=== PATIENT | female | born 1930 | race Caucasian/White ===

== ENCOUNTER 2017-07-25 09:49 | Outpatient (CLI) | payer OTHER ==
[2014-03-02 08:04] VITALS: O2SAT 94
== END 2017-07-25 09:50 | disposition home or self-care (01) | DRG 556 ==
LOC: CONVCARE 09:49
PROVIDERS: ATTEND Orthopaedic Surgery
DX: M25.551 Pain in right hip (principal); M17.12 Unilateral primary osteoarthritis, left knee; M25.561 Pain in right knee; M48.06 Spinal stenosis, lumbar region
CPT/HCPCS: 72120; 72148; 73502; 73564

== ENCOUNTER 2017-08-13 10:25 | Day surgery (SDC) | payer OTHER ==
[2017-08-13 11:00] VITALS: O2SAT 96
[2017-08-13] MEDS ORDERED: LIDOCAINE HCL 1% MPF SOL ONE (12:04)
[2017-08-13] MEDS: DEXAMETHASONE SOD PHOS PF 10 MG/ML SOL IJ ONE ×2 (12:12→12:22)
[2017-08-13 12:43] VITALS: RESP 20; TEMP 97.3
[2017-08-13 12:48] VITALS: BP 166/49; PULSE 50
== END 2017-08-13 12:50 | disposition home or self-care (01) | DRG 552 ==
LOC: SURG 10:25
PROVIDERS: ATTEND Nurse Anesthetist, Certified Registered
DX: M54.16 Radiculopathy, lumbar region (principal)
CPT/HCPCS: J1100; J2001

== ENCOUNTER 2017-09-10 13:48 | Day surgery (SDC) | payer OTHER ==
[2017-09-10 14:39] VITALS: BP 155/85; PULSE 58; RESP 18; TEMP 98.6; O2SAT 97
[2017-09-10] MEDS ORDERED: TRIAMCINOLONE ACETONIDE 40 MG/ML SUS ONE (15:08)
[2017-09-10] MEDS ORDERED: BUPIVACAINE HCL 0.25% MPF 10 ML SOL INFIL ONE (15:09)
== END 2017-09-10 15:35 | disposition home or self-care (01) | DRG 556 ==
LOC: SURG 13:48
PROVIDERS: ATTEND Nurse Anesthetist, Certified Registered
DX: M25.551 Pain in right hip (principal); M16.11 Unilateral primary osteoarthritis, right hip
CPT/HCPCS: J3300

== ENCOUNTER 2017-11-15 17:39 | Inpatient (IN) | payer OTHER ==
[2017-11-15 18:38] LABS: BASOPHILS % (AUTO) 1 % (0-3); EOSINOPHILS % (AUTO) 1 % (0-9); HEMATOCRIT 33 % (35-47); MEAN CORPUSCULAR VOLUME 91 fL (81-99); MONOCYTES % (AUTO) 13.9 % (0-12); NEUTROPHILS % (AUTO) 73.2 % (37-80)
[2017-11-15 18:39] LABS: ALBUMIN 3.9 gm/dl (3.4-5.0); ALT 20 IU/L (14-63); CALCIUM 9.4 mg/dl (8.5-10.1); GLOM FILT RATE 56 mL/min (>60); POTASSIUM 3.8 mMol/L (3.5-5.1); SODIUM 135 mMol/L (136-145)
[2017-11-15] MEDS ORDERED: ACETAMINOPHEN 325 MG PO ONE (19:23)
[2017-11-15] MEDS ORDERED: ACETAMINOPHEN 325 MG ONE (19:25)
[2017-11-15 19:33] LABS: APPEARANCE,URINE Slightly Cloudy; BILIRUBIN,URINE NEGATIVE (NEGATIVE); COLOR,URINE Yellow; GLUCOSE, URINE (UA) NEGATIVE (NEGATIVE); KETONES,URINE NEGATIVE (NEGATIVE); LEUKOCYTE ESTERASE ,URINE NEGATIVE (NEGATIVE); NITRATE,URINE NEGATIVE (NEGATIVE); OCCULT BLOOD,URINE NEGATIVE (NEG-TRACE); PH,URINE 8.5
[2017-11-15 20:06] LABS: ABG PH 7.42 (7.35-7.45)
[2017-11-15 20:21] LABS: RBC,URINE NEG (0-3AV/HPF); WBC,URINE 0-2 (0-5AV/HPF)
[2017-11-15] MEDS ORDERED: SODIUM CHLORIDE 0.9% 1000ML 1,000 ML IV ONE (20:39)
[2017-11-15] MEDS ORDERED: OSELTAMIVIR PHOSPHATE 75 MG CAP PO ONE ×2 (20:59→21:07)
[2017-11-15] MEDS ORDERED: DOXYCYCLINE 100 MG PDS 100 MG in SODIUM CHLORIDE 0.9% 100 ML 100 ML IV ONE (21:17)
[2017-11-15] MEDS ORDERED: CEFTRIAXONE 1 GM (PREMIX) 1 GM/50 ML SOL IV ONE (21:19)
[2017-11-15] MEDS ORDERED: CEFTRIAXONE 1 GM PDS ONE (21:21)
[2017-11-15] MEDS ORDERED: DOXYCYCLINE 100 MG TAB PO ONE (21:22)
[2017-11-15] MEDS ORDERED: DOXYCYCLINE 100 MG TAB ONE (21:29)
[2017-11-15] MEDS ORDERED: SODIUM CHLORIDE 0.9% 50 ML 25 ML IV PRN (22:08)
[2017-11-15] MEDS: LISINOPRIL 20 MG TAB PO SCH (23:00)
[2017-11-15] MEDS: METOPROLOL SUCCINATE 50 MG ER TAB PO SCH (23:01)
[2017-11-16] MEDS ORDERED: SODIUM CHLORIDE 0.9% 1000ML 1,000 ML IV SCH (00:45)
[2017-11-16] MEDS: ACETAMINOPHEN 325 MG PO PRN ×4 (03:12→20:45)
[2017-11-16] MEDS ORDERED: Non-Formulary Medication MISC (Levothyroxine Sodium 112 Mcg 112 MCG) PO SCH (07:00)
[2017-11-16] MEDS: HUMALOG PEN 100 U/ML SC SCH ×4 (07:30→20:10)
[2017-11-16 07:44] LABS: BASOPHILS % (AUTO) 1 % (0-3); EOSINOPHILS % (AUTO) 1 % (0-9); HEMATOCRIT 29 % (35-47); MEAN CORPUSCULAR HGB CONC 34.3 gm/dl (32.0-36.0); MEAN CORPUSCULAR VOLUME 91 fL (81-99); MONOCYTES % (AUTO) 12.9 % (0-12); NEUTROPHILS % (AUTO) 77.1 % (37-80)
[2017-11-16 07:49] LABS: CALCIUM 8.5 mg/dl (8.5-10.1); POTASSIUM 3.5 mMol/L (3.5-5.1)
[2017-11-16] MEDS ORDERED: SODIUM CHLORIDE 0.9% 100 ML 100 ML IV ONE (08:46)
[2017-11-16] MEDS ORDERED: CEFTRIAXONE 1 GM PDS ONE (08:46)
[2017-11-16] MEDS: CEFTRIAXONE 1 GM PDS 1 GM in SODIUM CHLORIDE 0.9% 100 ML 100 ML IV SCH ×2 (08:54→20:28)
[2017-11-16] MEDS: ASPIRIN 325 MG TAB PO SCH (08:56)
[2017-11-16] MEDS: DOCUSATE SODIUM 100 MG SGL PO SCH ×2 (08:56→20:10)
[2017-11-16] MEDS: POTASSIUM CHLORIDE 10 MEQ TER PO SCH (08:57)
[2017-11-16] MEDS: ENOXAPARIN 40 MG SOL SC SCH (08:57)
[2017-11-16] MEDS: MULTIVITAMIN2 1 EA TAB PO SCH (08:58)
[2017-11-16] MEDS: CHOLECALCIFEROL 1,000 IU TAB PO SCH (08:58)
[2017-11-16] MEDS: ASCORBIC ACID 500 MG TAB PO SCH (08:58)
[2017-11-16] MEDS ORDERED: GABAPENTIN 300 MG CAP PO SCH (09:00)
[2017-11-16] MEDS ORDERED: DOXYCYCLINE 100 MG TAB PO SCH (09:00)
[2017-11-16] MEDS ORDERED: POLYETHYLENE GLYCOL 17 GM/1 TBS PDS PO SCH (09:00)
[2017-11-16] MEDS: LISINOPRIL 20 MG TAB PO SCH ×3 (10:09→20:11)
[2017-11-16] MEDS: FENOFIBRATE 200 MG PO SCH (11:22)
[2017-11-16] MEDS: LEVOTHYROXINE SODIUM 112 MCG TAB PO SCH (11:23)
[2017-11-16] MEDS: GABAPENTIN 300 MG CAP PO SCH ×2 (12:25→19:34)
[2017-11-16] MEDS: METOPROLOL SUCCINATE 50 MG ER TAB PO SCH ×2 (17:06→20:11)
[2017-11-16] MEDS ORDERED: HEPARIN SODIUM 5000 U/ML SOL IV ONE (17:27)
[2017-11-16] MEDS ORDERED: HEPARIN SODIUM 5000 U/ML 25,000 U in DEXTROSE 250 ML 250 ML IV PRN (17:27)
[2017-11-16] MEDS ORDERED: ALBUTEROL/IPRATROPIUM 1 VIAL SOL INH PRN (17:32)
[2017-11-16] MEDS ORDERED: HEPARIN SODIUM 5000 U/ML SOL ONE ×2 (17:51→17:52)
[2017-11-16] MEDS ORDERED: DEXTROSE 250 ML 250 ML IV ONE ×2 (17:52)
[2017-11-16 17:57] LABS: ABG PH 7.25 (7.35-7.45)
[2017-11-16 18:05] LABS: BASOPHILS % (AUTO) 1 % (0-3); EOSINOPHILS % (AUTO) 1 % (0-9); HEMATOCRIT 35 % (35-47); MEAN CORPUSCULAR HGB CONC 33.7 gm/dl (32.0-36.0); MEAN CORPUSCULAR VOLUME 92 fL (81-99); MONOCYTES % (AUTO) 8.8 % (0-12); NEUTROPHILS % (AUTO) 78.1 % (37-80)
[2017-11-16 18:23] LABS: CALCIUM 9.4 mg/dl (8.5-10.1); GLOM FILT RATE 61 mL/min (>60); SODIUM 138 mMol/L (136-145)
[2017-11-16] MEDS ORDERED: LORAZEPAM 2 MG/ML 10ML MDV 2 MG/ML VIAL IV PRN (18:32)
[2017-11-16] MEDS: SCOPOLAMINE 1.5MG PATCH TD SCH (18:55)
[2017-11-16] MEDS: PIPERACILLIN/TAZOBACT 3.375 GM 3 GM in SODIUM CHLORIDE 0.9% 100 ML 100 ML IV SCH (19:20)
[2017-11-16] MEDS: MORPHINE SULFATE 10 MG/ML SOL IV PRN (19:28)
[2017-11-16] MEDS ORDERED: PIPERACILLIN/TAZOBACT 3.375 GM PDS IV ONE (19:35)
[2017-11-16] MEDS ORDERED: LORAZEPAM 2 MG/ML SOL ONE (20:03)
[2017-11-16] MEDS: POLYETHYLENE GLYCOL 17 GM/1 TBS PDS PO SCH (20:10)
[2017-11-17] MEDS ORDERED: SODIUM CHLORIDE 0.9% 100 ML 100 ML IV ONE ×4 (00:25→19:38)
[2017-11-17] MEDS ORDERED: PIPERACILLIN/TAZOBACT 3.375 GM PDS IV ONE ×4 (00:25→19:38)
[2017-11-17] MEDS: PIPERACILLIN/TAZOBACT 3.375 GM 3 GM in SODIUM CHLORIDE 0.9% 100 ML 100 ML IV SCH ×3 (00:38→13:44)
[2017-11-17] MEDS: MORPHINE SULFATE 10 MG/ML SOL IV PRN ×2 (00:39→21:17)
[2017-11-17] MEDS: HUMALOG PEN 100 U/ML SC SCH ×4 (06:20→20:06)
[2017-11-17 07:17] LABS: HEMATOCRIT 31 % (35-47); MEAN CORPUSCULAR VOLUME 93 fL (81-99)
[2017-11-17 07:48] LABS: BASOPHILS % (MANUAL) 0 % (0-3); EOSINOPHILS % (MANUAL) 0 % (0-9); LYMPHOCYTES % (MANUAL) 5 % (10-50); NORMAL RBCS PRESENT
[2017-11-17] MEDS: FENOFIBRATE 200 MG PO SCH (09:06)
[2017-11-17] MEDS: DOCUSATE SODIUM 100 MG SGL PO SCH ×2 (09:06→20:06)
[2017-11-17] MEDS: ASPIRIN 325 MG TAB PO SCH (09:06)
[2017-11-17] MEDS: POTASSIUM CHLORIDE 10 MEQ TER PO SCH (09:06)
[2017-11-17] MEDS: MULTIVITAMIN2 1 EA TAB PO SCH (09:07)
[2017-11-17] MEDS: GABAPENTIN 300 MG CAP PO SCH ×3 (09:07→18:04)
[2017-11-17] MEDS: CHOLECALCIFEROL 1,000 IU TAB PO SCH (09:07)
[2017-11-17] MEDS: ASCORBIC ACID 500 MG TAB PO SCH (09:07)
[2017-11-17] MEDS: ENOXAPARIN 40 MG SOL SC SCH (09:16)
[2017-11-17] MEDS: LEVOTHYROXINE SODIUM 112 MCG TAB PO SCH (10:04)
[2017-11-17] MEDS ORDERED: ACETAMINOPHEN 650 MG SUP PR PRN (10:30)
[2017-11-17] MEDS: PIPERACILLIN/TAZOBACT 3.375 GM 3.375 GM in SODIUM CHLORIDE 0.9% 100 ML 100 ML IV SCH ×2 (13:28→19:54)
[2017-11-17] MEDS: SODIUM CHLORIDE 0.9% FLUSH 10 ML SOL IV SCH ×3 (14:10→22:25)
[2017-11-17] MEDS: ACETAMINOPHEN 325 MG PO PRN (16:54)
[2017-11-17] MEDS: METOPROLOL SUCCINATE 50 MG ER TAB PO SCH (20:07)
[2017-11-17] MEDS: POLYETHYLENE GLYCOL 17 GM/1 TBS PDS PO SCH (20:07)
[2017-11-18] MEDS ORDERED: PIPERACILLIN/TAZOBACT 3.375 GM PDS IV ONE ×4 (01:08→20:34)
[2017-11-18] MEDS ORDERED: SODIUM CHLORIDE 0.9% 100 ML 100 ML IV ONE ×4 (01:09→20:34)
[2017-11-18] MEDS: SODIUM CHLORIDE 0.9% FLUSH 10 ML SOL IV SCH ×5 (01:20→23:00)
[2017-11-18] MEDS: PIPERACILLIN/TAZOBACT 3.375 GM 3.375 GM in SODIUM CHLORIDE 0.9% 100 ML 100 ML IV SCH ×4 (01:21→20:58)
[2017-11-18] MEDS: ACETAMINOPHEN 325 MG PO PRN ×2 (01:32→21:05)
[2017-11-18] MEDS: MORPHINE SULFATE 10 MG/ML SOL IV PRN (01:57)
[2017-11-18] MEDS: LEVOTHYROXINE SODIUM 112 MCG TAB PO SCH (06:05)
[2017-11-18] MEDS: HUMALOG PEN 100 U/ML SC SCH (06:05)
[2017-11-18] MEDS: ENOXAPARIN 40 MG SOL SC SCH (11:00)
[2017-11-18] MEDS: POTASSIUM CHLORIDE 10 MEQ TER PO SCH (11:09)
[2017-11-18] MEDS: MULTIVITAMIN2 1 EA TAB PO SCH (11:09)
[2017-11-18] MEDS: METOPROLOL SUCCINATE 50 MG ER TAB PO SCH (21:02)
[2017-11-18] MEDS: MORPHINE SULFATE 10 MG/5 ML SOL PO PRN (21:02)
[2017-11-18] MEDS: LORAZEPAM 2 MG/ML SOL IV PRN (22:59)
[2017-11-18] MEDS: ASPIRIN 325 MG TAB PO SCH (23:52)
[2017-11-18] MEDS: GABAPENTIN 300 MG CAP PO SCH (23:52)
[2017-11-18] MEDS: DOCUSATE SODIUM 100 MG SGL PO SCH (23:52)
[2017-11-18] MEDS: CHOLECALCIFEROL 1,000 IU TAB PO SCH (23:53)
[2017-11-18] MEDS: ASCORBIC ACID 500 MG TAB PO SCH (23:53)
[2017-11-19] MEDS ORDERED: PIPERACILLIN/TAZOBACT 3.375 GM PDS IV ONE ×3 (01:12→12:56)
[2017-11-19] MEDS ORDERED: SODIUM CHLORIDE 0.9% 100 ML 100 ML IV ONE ×3 (01:12→12:56)
[2017-11-19] MEDS: PIPERACILLIN/TAZOBACT 3.375 GM 3.375 GM in SODIUM CHLORIDE 0.9% 100 ML 100 ML IV SCH ×4 (01:44→20:56)
[2017-11-19] MEDS: SODIUM CHLORIDE 0.9% FLUSH 10 ML SOL IV SCH ×4 (01:45→21:36)
[2017-11-19] MEDS: LEVOTHYROXINE SODIUM 112 MCG TAB PO SCH (06:08)
[2017-11-19] MEDS: POTASSIUM CHLORIDE 10 MEQ TER PO SCH (08:41)
[2017-11-19] MEDS: MULTIVITAMIN2 1 EA TAB PO SCH (08:42)
[2017-11-19] MEDS: ENOXAPARIN 40 MG SOL SC SCH (10:19)
[2017-11-19] MEDS: ALBUTEROL NEB SOL 2.5MG/3ML 1 VIAL SOL NEB SCH ×3 (10:21→20:57)
[2017-11-19] MEDS: LORAZEPAM 2 MG/ML SOL IV PRN (15:15)
[2017-11-19] MEDS: MORPHINE SULFATE 10 MG/5 ML SOL PO PRN (15:35)
[2017-11-19] MEDS: SCOPOLAMINE 1.5MG PATCH TD SCH (20:55)
[2017-11-19] MEDS: METOPROLOL SUCCINATE 50 MG ER TAB PO SCH (20:56)
[2017-11-20] MEDS: PIPERACILLIN/TAZOBACT 3.375 GM 3.375 GM in SODIUM CHLORIDE 0.9% 100 ML 100 ML IV SCH (00:30)
[2017-11-20] MEDS: MORPHINE SULFATE 10 MG/5 ML SOL PO PRN (02:30)
[2017-11-20] MEDS: SODIUM CHLORIDE 0.9% FLUSH 10 ML SOL IV SCH (05:46)
[2017-11-20] MEDS: LEVOTHYROXINE SODIUM 112 MCG TAB PO SCH (07:37)
[2017-11-20 07:47] VITALS: BP 182/77; TEMP 98.7
[2017-11-20] MEDS: MULTIVITAMIN2 1 EA TAB PO SCH (08:40)
[2017-11-20] MEDS: POTASSIUM CHLORIDE 10 MEQ TER PO SCH (08:40)
[2017-11-20] MEDS: ALBUTEROL NEB SOL 2.5MG/3ML 1 VIAL SOL NEB SCH (08:41)
[2017-11-20] MEDS: ENOXAPARIN 40 MG SOL SC SCH (08:43)
[2017-11-20] MEDS: ACETAMINOPHEN 325 MG PO PRN (08:44)
[2017-11-20 09:18] VITALS: PULSE 72; RESP 12; O2SAT 97
== END 2017-11-20 10:00 | DRG 195 ==
LOC: ED 17:39 → ACUTE CARE 21:33 → OBSVTOIN 21:33
PROVIDERS: ADMIT Internal Medicine; ATTEND Internal Medicine
DX: J18.9 Pneumonia, unspecified organism (principal); R06.03 Acute respiratory distress; E11.42 Type 2 diabetes mellitus with diabetic polyneuropathy; E03.9 Hypothyroidism, unspecified; Z79.4 Long term (current) use of insulin; J11.1 Influenza due to unidentified influenza virus with other respiratory manifestations; I10 Essential (primary) hypertension; K59.01 Slow transit constipation; R41.0 Disorientation, unspecified; J40 Bronchitis, not specified as acute or chronic; W19.XXXA Unspecified fall, initial encounter
CPT/HCPCS: 36415; 36600; 71045; 71275; 80048; 80053; 81001; 82803; 82962; 83880; 84484; 85007; 85025; 85027; 87040; 87430; 87804; 94640; 94760; 96365; 99070; 99223; 99232; 99284; J0696; J1644; J1650; J2060; J2270; J2543; J7603; J7620; Q9967; A9270-GY

== ENCOUNTER 2018-01-14 12:16 | Observation (INO) | payer OTHER ==
[2018-01-14] MEDS ORDERED: TICAGRELOR 90 MG TAB PO ONE (12:20)
[2018-01-14] MEDS ORDERED: ASPIRIN 81 MG CHEWABLE CTB PO STA (12:31)
[2018-01-14] MEDS ORDERED: NITROGLYCERIN 0.4 MG TAB SL PRN (12:31)
[2018-01-14] MEDS ORDERED: SODIUM CHLORIDE 0.9% FLUSH 10 ML SOL IV PRN (12:31)
[2018-01-14 12:37] LABS: BASOPHILS % (AUTO) 1 % (0-3); EOSINOPHILS % (AUTO) 4 % (0-9); HEMATOCRIT 32 % (35-47); MEAN CORPUSCULAR HGB CONC 34.5 gm/dl (32.0-36.0); MEAN CORPUSCULAR VOLUME 91 fL (81-99); MONOCYTES % (AUTO) 11.5 % (0-12); NEUTROPHILS % (AUTO) 58.1 % (37-80)
[2018-01-14 12:51] LABS: ALBUMIN 3.4 gm/dl (3.4-5.0); ALT 22 IU/L (14-63); CALCIUM 9.1 mg/dl (8.5-10.1); GLOM FILT RATE 100 mL/min (>60); POTASSIUM 3.6 mMol/L (3.5-5.1); SODIUM 137 mMol/L (136-145)
[2018-01-14] MEDS ORDERED: APAP/HYDROCODONE 325/5 TAB PO ONE (14:14)
[2018-01-14] MEDS ORDERED: APAP/HYDROCODONE 325/5 TAB ONE (15:29)
[2018-01-14] MEDS ORDERED: DIPHENHYDRAMINE 25 MG CAP PO PRN (21:06)
[2018-01-14] MEDS ORDERED: ACETAMINOPHEN 500 MG 500 MG TAB PO PRN (21:06)
[2018-01-14] MEDS ORDERED: TEMAZEPAM 15MG 15 MG CAP PO PRN (21:32)
[2018-01-14] MEDS: TRAMADOL HYDROCHLORIDE 50 MG TAB PO PRN (22:18)
[2018-01-15 00:25] VITALS: PULSE 55; RESP 18
[2018-01-15 07:34] LABS: HEMOGLOBIN A1C 5.8 % (4.8-6.0)
[2018-01-15 07:58] VITALS: BP 143/72; TEMP 97.5; O2SAT 92
[2018-01-15] MEDS ORDERED: ASPIRIN EC 81 MG PO SCH (09:00)
[2018-01-15] MEDS ORDERED: LISINOPRIL 20 MG TAB PO SCH (09:00)
[2018-01-15] MEDS ORDERED: HYDROCHLOROTHIAZIDE 25 MG TAB PO SCH (09:00)
[2018-01-15] MEDS ORDERED: PNEUMOC 13-VAL CONJ-DIP CRM/PF 0.5 ML SYRINGE IM ONE (11:00)
[2018-01-15] MEDS: TRAMADOL HYDROCHLORIDE 50 MG TAB PO PRN (11:51)
[2018-01-15] MEDS ORDERED: AMLODIPINE 5 MG TAB PO SCH (16:00)
[2018-01-15] MEDS ORDERED: POLYETHYLENE GLYCOL 17 GM/1 TBS PDS PO SCH (20:00)
[2018-01-16] MEDS ORDERED: LEVOTHYROXINE SODIUM 112 MCG TAB PO SCH (07:00)
== END 2018-01-15 12:30 | DRG 313 ==
LOC: ED 12:16 → UNDOADMOB 17:03 → ACUTE CARE 17:03
PROVIDERS: ADMIT Family Medicine; ATTEND Family Medicine
DX: R07.89 Other chest pain (principal); E11.9 Type 2 diabetes mellitus without complications; I44.7 Left bundle-branch block, unspecified; M79.1 Myalgia
CPT/HCPCS: 36415; 71045; 71275; 80053; 82550; 82947; 83036; 83880; 84484; 85018; 85025; 85378; 85610; 85730; 90670; 93005; 93012; 99285; Q9967; A9270-GY; G0008

== ENCOUNTER 2018-10-21 12:05 | Emergency (ER) | payer OTHER ==
[2018-10-21 12:48] VITALS: TEMP 97.8
[2018-10-21 13:35] VITALS: O2SAT 97
[2018-10-21] MEDS ORDERED: LISINOPRIL 20 MG TAB ONE (13:55)
[2018-10-21] MEDS ORDERED: CYCLOBENZAPRINE 10 MG TAB ONE (14:58)
[2018-10-21] MEDS ORDERED: CYCLOBENZAPRINE HYDROCHLORID 5 MG TAB PO SCH (15:00)
[2018-10-21 15:31] VITALS: BP 169/90; PULSE 60; RESP 20
[2018-10-22] MEDS ORDERED: LISINOPRIL 20 MG TAB PO ONE (13:49)
== END 2018-10-21 16:45 | DRG 552 ==
LOC: ED 12:05
DX: M48.00 Spinal stenosis, site unspecified (principal); E11.9 Type 2 diabetes mellitus without complications; I10 Essential (primary) hypertension
CPT/HCPCS: 70450; 72125; 72128; 72131; 99283; A9270-GY

== ENCOUNTER 2018-11-03 17:27 | Inpatient (IN) | payer OTHER ==
[2018-11-03] MEDS ORDERED: SOLUMEDROL 125 MG/2 ML 125 MG/2 ML PDS IV ONE (18:09)
[2018-11-03] MEDS ORDERED: HYDROMORPHONE HCL 2 MG/ML SOL IV ONE (18:09)
[2018-11-03] MEDS ORDERED: DIAZEPAM 5MG/ML SOL IV ONE (18:10)
[2018-11-03] MEDS ORDERED: HYDROMORPHONE 1 MG/ML SYRINGE ONE (18:27)
[2018-11-03] MEDS ORDERED: SOLUMEDROL 125 MG/2 ML 125 MG/2 ML PDS ONE (18:27)
[2018-11-03] MEDS ORDERED: HYDROMORPHONE 1 MG/ML SYRINGE IV ONE (18:43)
[2018-11-03] MEDS ORDERED: DIAZEPAM 5 MG TAB PO ONE (18:44)
[2018-11-03] MEDS ORDERED: DIAZEPAM 5 MG TAB ONE (18:46)
[2018-11-03] MEDS ORDERED: LORAZEPAM 0.5 MG TAB PO PRN (19:13)
[2018-11-03] MEDS ORDERED: ONDANSETRON 4 MG ODT BU PRN (19:17)
[2018-11-03] MEDS ORDERED: DIPHENHYDRAMINE 25 MG CAP PO PRN (19:35)
[2018-11-03 20:13] LABS: BASOPHILS % (AUTO) 1 % (0-3); EOSINOPHILS % (AUTO) 2 % (0-9); HEMATOCRIT 33 % (35-47); HEMOGLOBIN 11.5 gm/dl (12.0-15.5); LYMPHOCYTES % (AUTO) 10.9 % (10-50); MEAN CORPUSCULAR HEMOGLOBIN 30.5 pg (27.0-32.0); MEAN CORPUSCULAR HGB CONC 34.4 gm/dl (32.0-36.0); MEAN CORPUSCULAR VOLUME 89 fL (81-99); MONOCYTES % (AUTO) 6.2 % (0-12); NEUTROPHILS % (AUTO) 80.6 % (37-80)
[2018-11-03 20:26] LABS: CALCIUM 9.7 mg/dl (8.5-10.1); CARBON DIOXIDE 27.4 mEq/L (21-32); CREATININE 0.61 mg/dl (0.60-1.00); POTASSIUM 3.3 mMol/L (3.5-5.1)
[2018-11-03] MEDS: POLYETHYLENE GLYCOL 17 GM/1 TBS PDS PO SCH (22:05)
[2018-11-03] MEDS ORDERED: POTASSIUM CHLORIDE 10 MEQ CAPSULE PO ONE (22:13)
[2018-11-03] MEDS ORDERED: POTASSIUM CHLORIDE 10 MEQ TER ONE (22:50)
[2018-11-03] MEDS: SODIUM CHLORIDE 0.9% 1000ML 1,000 ML IV SCH (22:55)
[2018-11-03] MEDS: SODIUM CHLORIDE 0.9% FLUSH 10 ML SOL IV SCH (22:56)
[2018-11-04] MEDS: ACETAMINOPHEN 500 MG 500 MG TAB PO PRN (04:45)
[2018-11-04] MEDS: HYDROMORPHONE 1 MG/ML SYRINGE IV PRN ×3 (04:54→15:24)
[2018-11-04] MEDS: SODIUM CHLORIDE 0.9% FLUSH 10 ML SOL IV SCH ×4 (06:21→23:00)
[2018-11-04] MEDS ORDERED: LEVOTHYROXINE SODIUM 50 MCG TAB PO SCH (07:00)
[2018-11-04 07:25] LABS: CALCIUM 9.4 mg/dl (8.5-10.1); CARBON DIOXIDE 25.7 mEq/L (21-32); CREATININE 0.62 mg/dl (0.60-1.00); POTASSIUM 4.7 mMol/L (3.5-5.1)
[2018-11-04] MEDS ORDERED: LISINOPRIL 20 MG TAB PO SCH (09:00)
[2018-11-04] MEDS: DOCUSATE SODIUM 100 MG SGL PO SCH (09:30)
[2018-11-04] MEDS: HYDROCHLOROTHIAZIDE 25 MG TAB PO SCH (09:30)
[2018-11-04] MEDS: PANTOPRAZOLE SODIUM 40 MG ECT PO SCH (09:30)
[2018-11-04] MEDS: ASPIRIN EC 81 MG PO SCH (09:30)
[2018-11-04] MEDS: SENNOSIDES A AND B 8.6 MG TAB PO SCH ×2 (09:30→20:52)
[2018-11-04] MEDS: METOPROLOL SUCCINATE 50 MG ER TAB PO SCH (09:31)
[2018-11-04] MEDS: PREDNISONE 20 MG TAB PO SCH (09:31)
[2018-11-04] MEDS: CITALOPRAM 20 MG TAB PO SCH (09:32)
[2018-11-04] MEDS: AMLODIPINE 5 MG TAB PO SCH (09:37)
[2018-11-04] MEDS ORDERED: ONDANSETRON HCL 4 MG/2 ML SOL ONE (13:58)
[2018-11-04] MEDS ORDERED: ONDANSETRON HCL 4 MG/2 ML SOL IV ONE (14:00)
[2018-11-04] MEDS ORDERED: SOLUMEDROL 125 MG/2 ML 125 MG/2 ML PDS IV ONE (16:00)
[2018-11-04] MEDS: DIAZEPAM 5 MG TAB PO PRN (16:12)
[2018-11-04] MEDS: SODIUM CHLORIDE 0.9% 1000ML 1,000 ML IV SCH (16:42)
[2018-11-04] MEDS: GABAPENTIN 100 MG CAP PO SCH (20:52)
[2018-11-04] MEDS: POLYETHYLENE GLYCOL 17 GM/1 TBS PDS PO SCH (20:52)
[2018-11-04] MEDS: APAP/HYDROCODONE 1 EACH TABLET PO PRN (20:53)
[2018-11-05] MEDS: LEVOTHYROXINE SODIUM 112 MCG TAB PO SCH ×2 (05:21→08:44)
[2018-11-05] MEDS: ACETAMINOPHEN 500 MG 500 MG TAB PO PRN ×2 (05:21→20:29)
[2018-11-05] MEDS: DIAZEPAM 5 MG TAB PO PRN ×2 (05:21→20:29)
[2018-11-05] MEDS ORDERED: FENTANYL 12 MCG PATCH TDM TD SCH (08:15)
[2018-11-05] MEDS: ASPIRIN EC 81 MG PO SCH (08:43)
[2018-11-05] MEDS: PREDNISONE 20 MG TAB PO SCH (08:44)
[2018-11-05] MEDS: CITALOPRAM 20 MG TAB PO SCH (08:45)
[2018-11-05] MEDS: DOCUSATE SODIUM 100 MG SGL PO SCH (08:45)
[2018-11-05] MEDS: SODIUM CHLORIDE 0.9% FLUSH 10 ML SOL IV SCH ×2 (08:47→17:43)
[2018-11-05] MEDS: HYDROCHLOROTHIAZIDE 25 MG TAB PO SCH (08:48)
[2018-11-05] MEDS: AMLODIPINE 5 MG TAB PO SCH (08:48)
[2018-11-05] MEDS: SENNOSIDES A AND B 8.6 MG TAB PO SCH ×2 (08:49→20:01)
[2018-11-05] MEDS: PANTOPRAZOLE SODIUM 40 MG ECT PO SCH (08:49)
[2018-11-05] MEDS: LISINOPRIL 20 MG TAB PO SCH (08:50)
[2018-11-05] MEDS: METOPROLOL SUCCINATE 50 MG ER TAB PO SCH (08:50)
[2018-11-05] MEDS: APAP/HYDROCODONE 1 EACH TABLET PO PRN (09:58)
[2018-11-05] MEDS: POLYETHYLENE GLYCOL 17 GM/1 TBS PDS PO SCH (20:00)
[2018-11-05] MEDS: GABAPENTIN 100 MG CAP PO SCH (20:01)
[2018-11-06] MEDS: SODIUM CHLORIDE 0.9% FLUSH 10 ML SOL IV SCH (00:42)
[2018-11-06 01:01] VITALS: RESP 16
[2018-11-06] MEDS: LEVOTHYROXINE SODIUM 112 MCG TAB PO SCH ×2 (05:52→07:29)
[2018-11-06] MEDS: APAP/HYDROCODONE 1 EACH TABLET PO PRN ×2 (05:57→13:04)
[2018-11-06 07:47] VITALS: BP 169/72; PULSE 55; TEMP 97.2; O2SAT 92
[2018-11-06] MEDS: PREDNISONE 20 MG TAB PO SCH (08:53)
[2018-11-06] MEDS: HYDROCHLOROTHIAZIDE 25 MG TAB PO SCH (08:54)
[2018-11-06] MEDS: METOPROLOL SUCCINATE 50 MG ER TAB PO SCH (08:54)
[2018-11-06] MEDS: PANTOPRAZOLE SODIUM 40 MG ECT PO SCH (08:54)
[2018-11-06] MEDS: CITALOPRAM 20 MG TAB PO SCH (08:54)
[2018-11-06] MEDS: ASPIRIN EC 81 MG PO SCH (08:54)
[2018-11-06] MEDS: SENNOSIDES A AND B 8.6 MG TAB PO SCH (08:55)
[2018-11-06] MEDS: AMLODIPINE 5 MG TAB PO SCH (08:55)
[2018-11-06] MEDS: DOCUSATE SODIUM 100 MG SGL PO SCH (08:55)
[2018-11-06] MEDS: LISINOPRIL 20 MG TAB PO SCH (08:55)
== END 2018-11-06 13:40 | DRG 552 ==
LOC: ED 17:27 → ACUTE CARE 18:48 → UNDOADMIN 18:48 → ACUTE CARE 19:45
PROVIDERS: ADMIT Family Medicine; ATTEND Family Medicine
PROC: F01K5YZ Range of Motion and Joint Integrity Assessment of Musculoskeletal System - Upper Back / Upper Extremity using Other Equipment (ICD-10-PCS; principal; 2018-11-05)
PROC: F02Z2ZZ Feeding/Eating Assessment (ICD-10-PCS; 2018-11-05)
DX: M48.02 Spinal stenosis, cervical region (principal); M79.622 Pain in left upper arm; M79.621 Pain in right upper arm; M54.13 Radiculopathy, cervicothoracic region; I10 Essential (primary) hypertension; E03.9 Hypothyroidism, unspecified; E11.9 Type 2 diabetes mellitus without complications
CPT/HCPCS: 36415; 72141; 80048; 85025; 96374; 96375; 99222; 99252; 99283; J2405; J2930; A9270-GY; J1170